=== PATIENT | female | born 2000 | race Hispanic/Latino ===

== ENCOUNTER 2022-10-31 18:46 | Emergency (ER) | payer OTHER ==
[2022-10-31] MEDS ORDERED: HYDROCODONE/APAP 5/325 MG TAB ONE (19:26)
[2022-10-31] MEDS ORDERED: IBUPROFEN 400 MG TAB ONE (19:26)
[2022-10-31] MEDS ORDERED: BUPIVACAINE 0.5% PF 10 ML VIAL ONE (19:43)
[2022-10-31] MEDS ORDERED: LIDOCAINE 1% 20 ML MDV ONE (19:49)
--- NOTE | 2022-10-31 20:00 | RAD REPORT ---
EXAM DESCRIPTION: RAD - Elbow Right 3 View - 10/31/2022 7:47 pm CLINICAL HISTORY: injury COMPARISON: No comparisons FINDINGS/IMPRESSION: No acute fracture. No malalignment. No significant focal degenerative changes.
--- NOTE | 2022-10-31 22:44 | EDPHYS ---
Physician Documentation [facility] Name: Ester Carr Age: 22 yrs Sex: Female : 2000 Arrival Date: 10/31/2022 Time: 18:46 Bed 18 Private MD: ED Physician Li rSivastava HPI: 10/31 20:00 This 22 yrs old Female presents to ER via EMS with complaints of Laceration To cp Arm. 20:00 Patient is a 22-year-old female who presents to the emergency department with cp laceration injury to the proximal right forearm. Patient reports she was out on the boat and going up a ladder when the ladder broke and struck her right forearm causing laceration. Patient reports she is up-to-date on tetanus vaccination. No other complaints expressed. 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 - Social history:: Smoking status: Patient reports the use of cigarette tobacco products, smokes one-half pack cigarettes per day. ROS: 20:05 Skin: Positive for laceration(s), of the volar side proximal right forearm. cp 20:05 Constitutional: Negative for body aches, chills, fever, poor PO intake. cp 20:05 Respiratory: Negative for cough, shortness of breath, wheezing. 20:05 Abdomen/GI: Negative for abdominal pain, nausea, vomiting, and diarrhea. 20:05 Neuro: Negative for altered mental status, headache, numbness, tingling, weakness. 20:05 All other systems are negative. Exam: 22:10 Constitutional: The patient appears in no acute distress, alert, awake, non-toxic, well cp developed, well nourished, uncomfortable. 22:10 Head/Face: Normocephalic, atraumatic. cp 22:10 Eyes: Periorbital structures: appear normal, Conjunctiva: normal, no exudate, no injection, Lids and lashes: appear normal, bilaterally. 22:10 ENT: External ear(s): are unremarkable, Nose: is normal, Mouth: Lips: moist, Oral mucosa: moist, Posterior pharynx: is normal, airway is patent, no erythema, no exudate. 22:10 Neck: ROM/movement: is normal, is supple, without pain, no range of motions limitations. 22:10 Chest/axilla: Inspection: normal. 22:10 Cardiovascular: Rate: normal, Rhythm: regular, Pulses: Pulses are 2+ in right radial artery. 22:10 Respiratory: the patient does not display signs of respiratory distress, Respirations: normal, no use of accessory muscles, no retractions, labored breathing, is not present, Breath sounds: are clear throughout, no decreased breath sounds, no stridor, no wheezing. 22:10 Abdomen/GI: Exam negative for discomfort, distension, guarding, Inspection: abdomen appears normal. 22:10 Back: pain, is absent, ROM is normal. 22:10 Musculoskeletal/extremity: Extremities: noted in the right arm: ROM: full active range of motion, in the right arm, Sensation intact. 22:10 Skin: injury, laceration(s), of the volar side proximal right forearm, that can be described as clean, no foreign body, irregular, with mild bleeding, skin flap noted, appears gaping, irregular borders. Vital Signs: 18:51 BP 128 / 94; Pulse 94; Resp 16 S; Temp 99(O); Pulse Ox 95% on R/A; Weight 83.46 kg (R); aa5 Height 5 ft. 1 in. (R); 19:39 BP 132 / 80; Pulse 80; Resp 18; Pulse Ox 99% on R/A; sg5 20:42 BP 124 / 84; Pulse 82; Resp 18; Pulse Ox 97% on R/A; sg5 21:54 BP 131 / 93; Pulse 79; Resp 16; Pulse Ox 98% on R/A; sg5 18:51 Body Mass Index 34.77 (83.46 kg, 154.94 cm) aa5 Laceration: 22:40 Wound Repair of 10cm ( 3.9in ) subcutaneous laceration to right anterior proximal cp forearm. Irregularly shaped.. Skin/tissue flap noted.. Distal neuro/vascular/tendon intact. Anesthesia: Wound infiltrated with 15 mls of Lido/Marcaine. Wound prep: Moderate cleansing by me, Wound irrigation. Skin closed with 21 4-0 Prolene using interrupted sutures and sterile technique. Dressed with Bacitracin, 4x4's. Patient tolerated well. MDM: 18:56 Patient medically screened. cp 22:42 Data reviewed: vital signs, nurses notes, radiologic studies, plain films. cp 22:42 Differential diagnosis: superficial laceration, tendon injury, vascular injury, open cp fracture. I considered the following discharge prescriptions or medication management in the emergency department Medications were administered in the Emergency Department. See MAR. Independent interpretation of the following test(s) in the Emergency Department X-Ray: My interpretation is images of right elbow negative for fracture and/or foreign body. Counseling: I had a detailed discussion with the patient and/or guardian regarding the historical points, exam findings, and any diagnostic results supporting the discharge/admit diagnosis, radiology results, the need for outpatient follow up, a general surgeon, to return to the emergency department if symptoms worsen or persist or if there are any questions or concerns that arise at home. Response to treatment: the patient's symptoms have markedly improved after treatment, and as a result, I will discharge patient. 10/31 18:56 Order name: XRAY Elbow RIGHT 3 view; Complete Time: 20:40 cp 10/31 18:55 Order name: Dressing - Wound; Complete Time: 22:59 cp 10/31 18:55 Order name: Gloves, Sterile; Complete Time: 22:59 cp 10/31 18:55 Order name: Setup Suture Tray; Complete Time: 22:59 cp 10/31 18:56 Order name: Wound Care cp 10/31 22:40 Order name: Wound dressing; Complete Time: 22:56 cp Administered Medications: 19:17 Drug: Ibuprofen PO 800 mg Route: PO; rs5 19:17 Drug: HYDROcodone-acetaminophen PO 5 mg-325 mg 1 tabs Route: PO; rs5 21:54 Not Given (given by NPp): Bupivacaine Infiltration (0.5 %) 10 ml 10 ml Infiltration oncesg5 21:54 Not Given (given by NPp): Lidocaine-Epinephrine Infiltration -1%: (1:100,000) 10 ml 20 sg5 ml Infiltration once; to bedside 22:59 Drug: Doxycycline PO 100 mg Route: PO; sg5 Disposition Summary: 10/31/22 22:43 Discharge Ordered Location: Home cp Problem: new cp Symptoms: have improved cp Condition: Stable cp Diagnosis - Laceration without foreign body of right forearm cp Followup: cp - With: Private Physician - When: 2 - 3 days - Reason: Wound Recheck Discharge Instructions: - Discharge Summary Sheet cp - Laceration Care, Adult cp - Sutured Wound Care cp Forms: - Medication Reconciliation Form cp - Thank You Letter cp - Antibiotic Education cp - Prescription Opioid Use cp - Patient Portal Instructions cp - Leadership Thank You Letter cp Prescriptions: - Ibuprofen 800 mg Oral Tablet - take 1 tablet by ORAL route every 8 hours As needed take with food; 30 tablet; cp Refills: 0, Product Selection Permitted - Doxycycline Hyclate 100 mg Oral Tablet - take 1 tablet by ORAL route every 12 hours; 20 tablet; Refills: 0, Product cp Selection Permitted Signatures: Dispatcher [employer] Shaina Spain, RN RN aa5 Peetr Taylor PA PA cp Sotelo, Ricky RN RN rs5 Laura Powers RN RN sg5
--- NOTE | 2022-10-31 22:44 | ER ---
Nurse's Notes [facility] Name: Ester Carr Age: 22 yrs Sex: Female : 2000 Arrival Date: 10/31/2022 Time: 18:46 Bed 18 Private MD: Diagnosis: Laceration without foreign body of right forearm Presentation: 10/31 18:51 Chief complaint: EMS states: pt was on a boat going up the ladder, ladder fell off aa5 latch and bent hitting pt on right arm, laceration noted to R AC. 18:51 Coronavirus screen: At this time, the client does not indicate any symptoms associated aa5 with coronavirus-19. Ebola Screen: Patient denies travel to an Ebola-affected area in the 21 days before illness onset. Complicating Factors: There are no complicating factors for this patient. Initial Sepsis Screen: Does the patient meet any 2 criteria? HR > 90 bpm. Does the patient have a suspected source of infection? No. Patient's initial sepsis screen is negative. Risk Assessment: Do you want to hurt yourself or someone else? Patient reports no desire to harm self or others. Onset of symptoms was October 2022. 18:51 Acuity: DANIELLA 3 aa5 18:51 Method Of Arrival: EMS: [facility] aa5 Triage Assessment: 23:10 General: Appears uncomfortable, Behavior is calm, cooperative, appropriate for age. sg5 Injury Description: Laceration sustained to right arm. 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 - Social history:: Smoking status: Patient reports the use of cigarette tobacco products, smokes one-half pack cigarettes per day. Screenin:09 [facility] ED Fall Risk Assessment (Adult) History of falling in the last 3 months, sg5 including since admission No falls in past 3 months (0 pts). Abuse screen: Denies threats or abuse. Nutritional screening: No deficits noted. Tuberculosis screening: No symptoms or risk factors identified. Assessment: 19:10 Pain: Complains of pain in right arm Pain does not radiate. Pain currently is 8 out of rs5 10 on a pain scale. Quality of pain is described as aching, throbbing, Pain began 1 hour ago. Is continuous. 23:10 Injury Description: Laceration is jagged. sg5 23:11 Musculoskeletal: No signs and/or symptoms reported regarding the musculoskeletal system.sg5 Vital Signs: 18:51 BP 128 / 94; Pulse 94; Resp 16 S; Temp 99(O); Pulse Ox 95% on R/A; Weight 83.46 kg (R); aa5 Height 5 ft. 1 in. (R); 19:39 BP 132 / 80; Pulse 80; Resp 18; Pulse Ox 99% on R/A; sg5 20:42 BP 124 / 84; Pulse 82; Resp 18; Pulse Ox 97% on R/A; sg5 21:54 BP 131 / 93; Pulse 79; Resp 16; Pulse Ox 98% on R/A; sg5 18:51 Body Mass Index 34.77 (83.46 kg, 154.94 cm) aa5 ED Course: 18:51 Patient arrived in ED. aa5 18:51 Peter Taylor PA is PHCP. cp 18:51 Li Srivastava MD is Attending Physician. cp 18:51 Arm band placed on Patient placed in an exam room, on a stretcher. aa5 19:28 Laura Powers, RN is Primary Nurse. sg5 19:28 Triage completed. aa5 19:49 XRAY Elbow RIGHT 3 view In Process Unspecified. EDMS 23:09 Patient has correct armband on for positive identification. Bed in low position. Call sg5 light in reach. Side rails up X 1. Adult w/ patient. Valuables Left with patient. Provided Education on: need for stitches. 23:09 No provider procedures requiring assistance completed. Patient did not have IV access sg5 during this emergency room visit. Administered Medications: 19:17 Drug: Ibuprofen PO 800 mg Route: PO; rs5 19:17 Drug: HYDROcodone-acetaminophen PO 5 mg-325 mg 1 tabs Route: PO; rs5 21:54 Not Given (given by NPp): Bupivacaine Infiltration (0.5 %) 10 ml 10 ml Infiltration oncesg5 21:54 Not Given (given by NPp): Lidocaine-Epinephrine Infiltration -1%: (1:100,000) 10 ml 20 sg5 ml Infiltration once; to bedside 22:59 Drug: Doxycycline PO 100 mg Route: PO; sg5 Medication: 23:11 VIS not applicable for this client. sg5 Outcome: 22:43 Discharge ordered by MD. taylor 23:09 Discharged to home with family. sg5 23:09 Condition: good 23:09 Discharge instructions given to patient, Instructed on discharge instructions, follow up and referral plans. 23:11 Patient left the ED. sg5 Signatures: Dispatcher [employer] EDMS Shaina Salvador, RN RN aa5 Peter Taylor PA PA cp Sotelo, Ricky, RN RN rs5 Laura Powers RN RN sg5 Corrections: (The following items were deleted from the chart) 19:31 19:10 83.01 kg; rs5 aa5 19:31 18:51 BP 128 / 94; Pulse 94bpm; Resp 16bpm; Spontaneous; Pulse Ox 95% RA; Temp 99F aa5 Oral; 83.46 kg Reported; Height 5 ft. 1 in. Reported; BMI: 34.7; aa5
[2022-10-31] MEDS ORDERED: DOXYCYCLINE 100 MG CAP PO ONE (23:08)
[2022-10-31 23:18] VITALS: TEMP 99
[2022-10-31 23:20] VITALS: BP 131/93; O2SAT 98
== END 2022-10-31 23:11 | disposition home or self-care (01) ==
LOC: ER 18:46
PROC: 0HQDXZZ Repair Right Lower Arm Skin, External Approach (ICD-10-PCS; principal; 2022-10-31)
DX: S51.811A Laceration without foreign body of right forearm, initial encounter (principal); F17.210 Nicotine dependence, cigarettes, uncomplicated; Z88.2 Allergy status to sulfonamides
CPT/HCPCS: 73080; 99283; 12004; J2001